=== PATIENT | female | born 1970 | race Two or more races ===

== ENCOUNTER 2021-07-11 09:33 | Emergency (ER) | payer OTHER ==
[2021-07-11 09:48] VITALS: BP 114/67; PULSE 74; TEMP 97.5; BMI 30.9
[2021-07-11] MEDS ORDERED: diazePAM 2 MG TABLET PO ONE (11:01)
[2021-07-11] MEDS ORDERED: LIDOCAINE 5% TOPICAL PATCH TP ONE (11:02)
[2021-07-11] MEDS ORDERED: diazePAM 2 MG TABLET ONE (11:57)
[2021-07-11] MEDS ORDERED: LIDOCAINE 5% TOPICAL PATCH ONE (11:57)
[2021-07-11] MEDS ORDERED: KETOROLAC TROMETHAMINE 15 MG/ML VIAL IM ONE (13:24)
[2021-07-11] MEDS ORDERED: KETOROLAC TROMETHAMINE 15 MG/ML VIAL ONE (13:26)
[2021-07-11] MEDS ORDERED: LIDOCAINE PATCH REMOVAL MC SCH (22:00)
== END 2021-07-11 15:53 | disposition home or self-care (01) ==
LOC: JERFT 09:33
PROC: 3E0233Z Introduction of Anti-inflammatory into Muscle, Percutaneous Approach (ICD-10-PCS; principal; 2021-07-11)
DX: M54.2 Cervicalgia (principal); M54.50 Low back pain, unspecified; V49.40XA Driver injured in collision with unspecified motor vehicles in traffic accident, initial encounter
CPT/HCPCS: 71250-TC; 72125-TC; 72128-TC; 72131-TC; 73030-TC-LT-FY; 73590-TC-LT-FY; 99285-25